=== PATIENT | male | born 2005 | race Caucasian/White ===

== ENCOUNTER 2024-08-24 16:43 | Emergency (ER) | payer OTHER, SELFPAY ==
[2024-08-24] VITALS (12 sets, daily range): BP systolic 144–157; BP diastolic 67–93; PULSE 77–95; RESP 12–21; TEMP 36.9–37.2; O2SAT 95–100; BMI 31.4
--- NOTE | 2024-08-24 17:13 | DI.CT.S_ITS ---
PROCEDURE: CT HEAD/BRAIN WO CON INDICATIONS: Trauma TECHNIQUE: Noncontrast 5 mm thick angled axial sections acquired from the foramen magnum to the vertex, with coronal and sagittal reformats. For radiation dose reduction, the following was used: automated exposure control, adjustment of mA and/or kV according to patient size. COMPARISON: [facility], CT, CT CERVICAL SPINE WO CON, 08/24/2024, 17:28. [facility], CT, CT TRAUMA CHEST ABDOMEN PELVIS, 08/24/2024, 17:28. [facility], CR, XR KNEE RT 1TO2V, 08/24/2024, 17:13. FINDINGS: Image quality: Diagnostic, with note made of motion artifact. CSF spaces: Basal cisterns are patent. No extra-axial fluid collections. Ventricles are normal in size and shape. Brain: No midline shift. No intracranial mass effect or hemorrhage. Moran-white matter interface is normal. Skull and face: Calvarium and visualized facial bones are intact, without suspicious lesions. Sinuses: Visualized sinuses and mastoids are clear. IMPRESSION: No acute intracranial hemorrhage is seen. No acute intracranial pathology. Dictated by: Darien Duran M.D. on 08/24/2024 at 17:35 Approved by: Darien Duran M.D. on 08/24/2024 at 17:36
--- NOTE | 2024-08-24 17:13 | DI.CT.S_ITS ---
PROCEDURE: CT CERVICAL SPINE WO CON INDICATIONS: Trauma TECHNIQUE: Noncontrast 3 mm thick sections acquired from the skull base to the T4 level. Sagittal and coronal reformats were then constructed. For radiation dose reduction, the following was used: automated exposure control, adjustment of mA and/or kV according to patient size. COMPARISON: [facility], CT, CT HEAD/BRAIN WO CON, 08/24/2024, 17:28. [facility], CT, CT TRAUMA CHEST ABDOMEN PELVIS, 08/24/2024, 17:28. [facility], CR, XR KNEE RT 1TO2V, 08/24/2024, 17:13. FINDINGS: Image quality: This examination is somewhat limited by quantum mottle artifact. Bones: No fractures or dislocations. Visualized superior ribs are intact. Soft tissues: Prevertebral soft tissues are normal in thickness. No paravertebral hematomas. No apical pneumothoraces. IMPRESSION: No displaced fracture or traumatic subluxation. Dictated by: Darien Duran M.D. on 08/24/2024 at 17:34 Approved by: Darien Duran M.D. on 08/24/2024 at 17:35
--- NOTE | 2024-08-24 17:13 | DI.CT.S_ITS ---
PROCEDURE: CT TRAUMA CHEST ABDOMEN PELVIS INDICATIONS: Trauma TECHNIQUE: MDCT axial chest images were obtained with IV contrast in the arterial phase. Maximum intensity projections and multiplanar reformats were obtained. MDCT axial abdomen and pelvis images were obtained with IV contrast in the portal venous phase. Multiplanar reformats were obtained. Optional delayed phase scanning may also be obtained Advanced techniques were used to lower patient radiation exposure. COMPARISON: [facility], CR, XR KNEE RT 1TO2V, 08/24/2024, 17:13. [facility], CT, CT CERVICAL SPINE WO CON, 08/24/2024, 17:28. [facility], CT, CT HEAD/BRAIN WO CON, 08/24/2024, 17:28. FINDINGS Image Quality: There is streak artifact seen through the level of the shoulders. There is also streak artifact seen through the upper abdomen. Chest: Lungs and pleura: No pneumothorax or hemothorax. No pulmonary contusions or lacerations. No solid pulmonary nodule requiring follow-up. Vascular: No dissection or pseudoaneurysm. No incidental central pulmonary embolism. No hemopericardium. Mediastinum: No mediastinum hematoma. There is a small amount residual thymus tissue seen, which is not regarded to be pathologic in a patient of this age. No suspicious mass or lymph nodes. No actionable thyroid nodules. Chest wall: Intact clavicles, scapula, and glenohumeral joint. No displaced rib fractures. Thoracic spine: No acute fracture or traumatic subluxation. ABDOMEN and PELVIS: Liver: No laceration or capsular hematoma. Gallbladder: Unremarkable. Biliary system: Non-dilated. Pancreas: Unremarkable. Spleen: No laceration or capsular hematoma. Adrenals: No suspicious nodules. Kidneys: No contrast extravasation or hydronephrosis. No solid masses. Vessels and lymph nodes: No pathology lymph nodes by size criteria. No dissection or aneurysm. No retroperitoneal hematoma. Bowel and peritoneum: No suspicious region of mesenteric hemorrhage or hemoperitoneum. No bowel obstruction. No dilated loops of small bowel are seen. A normal appendix is noted. Pelvis: Unremarkable bladder. Pelvic ring and femurs: No pelvic ring disruption. No hip fractures. Lumbar spine: No acute fracture or traumatic subluxation. Abdominal wall: No drainable fluid collection or hematoma. IMPRESSION: No displaced rib fractures are seen. No spinal fracture. No solid organ injury can be seen. Additional findings: Residual thymus tissue Normal appendix Note: Case discussed by telephone with Dr. Rivera at 6:59 p.m. [place] time on August 24, 2024. Dictated by: Darien Duran M.D. on 08/24/2024 at 17:56 Approved by: Darien Duran M.D. on 08/24/2024 at 18:01
--- NOTE | 2024-08-24 17:14 | DI.RAD.S_ITS ---
PROCEDURE: XR KNEE RT 1TO2V INDICATIONS: Fall/injury/possible foreign body TECHNIQUE: 2 views of the knee were acquired. COMPARISON: [facility], CT, CT CERVICAL SPINE WO CON, 08/24/2024, 17:28. [facility], CT, CT HEAD/BRAIN WO CON, 08/24/2024, 17:28. [facility], CT, CT TRAUMA CHEST ABDOMEN PELVIS, 08/24/2024, 17:28. FINDINGS: Bones: No fractures or dislocations. No suspicious bony lesions. Soft tissues: No joint effusion. No suspicious soft tissue calcifications. No radiopaque foreign bodies are seen. IMPRESSION: No radiopaque foreign bodies are seen. No acute plain film abnormality is seen. Dictated by: Darien Duran M.D. on 08/24/2024 at 17:30 Approved by: Darien Duran M.D. on 08/24/2024 at 17:30
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
[2024-08-24] MEDS: TET,DIPH,PERTUSS(ACELL),VAC/PF 0.5 ML SYRINGE IM (17:25)
[2024-08-24] MEDS: ONDANSETRON 4 MG/2 ML INJ IV (17:28)
[2024-08-24] MEDS: HYDROMORPHONE 1 MG INJ IV (17:28)
[2024-08-24 17:49] LABS: Alanine Aminotransferase 42 IU/L (<50); Albumin 4.8 g/dL (3.5-5.0); Albumin Globulin Ratio 1.5 (1.0-2.8); Alkaline Phosphatase 84 U/L (38-126); Aspartate Aminotransferase 45 IU/L (17-59); BUN Creatinine Ratio 11.2 (6-22); Blood Urea Nitrogen 12 mg/dL (9-20); Calcium 9.6 mg/dL (8.4-10.2); Carbon Dioxide 26 mmol/L (22-32); Chloride 105 mmol/L (98-107); Estimated Glomerular Filt Rate > 60 mL/min (>60); Globulin 3.3 g/dL (1.7-4.1); Glucose 98 mg/dL (70-100); HEMOLYSIS 17 (0-50); Lipase 63 U/L (23-300); Potassium 3.5 mmol/L (3.4-5.1); Sodium 141 mmol/L (137-145); Total Protein 8.1 g/dL (6.3-8.2)
[2024-08-24 17:55] LABS: Add Manual Diff / Slide Review NO; Basophils Absolute Auto 0 /uL (0-100); Basophils Percent Auto 0.5 % (0-2); Eosinophils Absolute Auto 100 /uL (0-450); Eosinophils Percent Auto 0.7 % (2-4); Hematocrit 48.2 % (41-53); Hemoglobin 16.9 g/dL (13.5-17.5); Lymphocytes Absolute Auto 2400 /uL (1100-4500); Lymphocytes Percent Auto 29.8 % (25-40); Mean Corpuscular HGB Conc 35.1 % (30-36); Mean Corpuscular Hemoglobin 30.8 PG (26-34); Mean Corpuscular Volume 87.8 fL (80-100); Monocytes Absolute Auto 600 /uL (0-900); Monocytes Percent Auto 7.2 % (3-14); Neutrophils Absolute Auto 5000 /uL (1500-7000); Neutrophils Percent Auto 61.8 % (50-75); Platelet Count 225 X10^3/uL (150-400); Red Blood Cell Count 5.49 X10^6/uL (4.5-5.9); Red Cell Distribution Width 12.7 % (11.6-14.8); White Blood Cell Count 8.1 X10^3/uL (4.5-11.0)
[2024-08-24] MEDS: KETOROLAC 30 MG/ML VIAL 15 MG IV (19:53)
--- NOTE | 2024-08-24 20:03 | PC.NURSE ---
Knee wound cleansed with NS and debrided, covered in gauze and wrapped in elastic bandage.
== END 2024-08-24 20:05 | disposition home or self-care (01) ==
PROVIDERS: Emergency Medicine; Emergency Provider Emergency Medicine
DX: S81.011A Laceration without foreign body, right knee, initial encounter (principal); S80.01XA Contusion of right knee, initial encounter; S50.811A Abrasion of right forearm, initial encounter; V29.91XA Electric (assisted) bicycle rider (driver) (passenger) injured in unspecified traffic accident, initial encounter; Z23 Encounter for immunization
CPT/HCPCS: 12001; 36415; 70450; 71275; 72125; 73560; 74177; 80053; 83690; 85025; 90471; 96374; 96375; 99284; 90715; J1171; J1885; J2405; Q9967